=== PATIENT | male | born 1940 | race Caucasian/White ===

== ENCOUNTER 2019-04-14 21:55 | Inpatient (IN) | payer MEDICARE, OTHER ==
[~2019-04-14] VITALS: Ht 167.6 cm; Wt 65.9 kg
[2019-04-14] MEDS ORDERED: SODIUM CHLORIDE 0.9% 1,000 ML IV ONE (23:15)
[2019-04-14] MEDS ORDERED: 0.9% SODIUM CHLORIDE 10 ML SYRINGE IVP PRN (23:15)
[2019-04-14] MEDS ORDERED: GABA-529 PO (23:23)
[2019-04-14] MEDS ORDERED: SEVE0.8P6 PO (23:23)
[2019-04-14] MEDS ORDERED: ALLO300 PO (23:23)
[2019-04-14] MEDS ORDERED: ASPI81 PO (23:23)
[2019-04-14] MEDS ORDERED: PIRF801T PO (23:23)
[2019-04-14] MEDS ORDERED: PRED20 PO (23:23)
[2019-04-14] MEDS ORDERED: PANT40TA25 PO (23:23)
[2019-04-14 23:40] LABS: BASOPHILS % (AUTO) 0.8 % (0.0-2.0); EOSINOPHILS % (AUTO) 0.5 % (1.0-6.0); HEMATOCRIT 34.5 % (41-53); LYMPHOCYTES # (AUTO) 1.2 K/uL (1.0-4.8); LYMPHOCYTES % (AUTO) 6.8 % (22.0-44.0); MEAN CORPUSCULAR HEMOGLOBIN 32.2 pg (26.0-34.0); MEAN CORPUSCULAR VOLUME 101 fL (80-100); MONOCYTES # (AUTO) 0.9 K/uL (0.1-1.0); MONOCYTES % (AUTO) 4.8 % (2.0-9.0); NEUTROPHILS # (AUTO) 15.8 K/uL (1.8-7.7); PLATELET COUNT (AUTO) 241 K/uL (150-450); RED BLOOD CELL COUNT(AUTO) 3.43 MIL/uL (4.50-5.90); RED CELL DISTRIBUTION WIDTH 16.2 % (11.5-14.5)
[2019-04-14 23:41] LABS: NEUTROPHILS % (AUTO) 87.1 % (40.0-70.0)
[2019-04-14] MEDS ORDERED: SODIUM CHLORIDE 0.9% 250 ML IV ONE (23:45)
[2019-04-14 23:49] LABS: CALCIUM, TOTAL 8.6 mg/dL (8.8-10.5); CREATININE 3.75 mg/dL (0.60-1.30); POTASSIUM 3.2 mmol/L (3.5-5.1)
[2019-04-14 23:50] LABS: PROTHROMBIN TIME 10.6 SEC (9.4-11.6)
[2019-04-14 23:56] LABS: LACTIC ACID 1.2 mmol/L (0.4-2.0)
[2019-04-15] VITALS (8 sets, daily range): BP systolic 93–124; BP diastolic 51–68
[2019-04-15 00:03] LABS: ALBUMIN 2.7 g/dL (3.4-5.0); BILIRUBIN,TOTAL 0.5 mg/dL (0.1-1.0)
[2019-04-15] MEDS ORDERED: PIPERACILLIN SODIUM/TAZOBACTAM 2.25 GM in DEXTROSE 5%-WATER 50 ML IV ONE (01:00)
[2019-04-15] MEDS ORDERED: VANCOMYCIN HCL 1.25 GM in DEXTROSE 5%-WATER 250 ML IV ONE (01:00)
[2019-04-15] MEDS ORDERED: ONDANSETRON HCL 4 MG/2 ML VIAL IVP PRN (01:30)
[2019-04-15] MEDS ORDERED: ASPIRIN 325 MG TABLET PO ONE (01:30)
[2019-04-15] MEDS ORDERED: 0.9% SODIUM CHLORIDE 10 ML SYRINGE IVP PRN (01:30)
[2019-04-15] MEDS ORDERED: POTASSIUM CHLORIDE 10 MEQ ER TABLET PO ONE (01:30)
[2019-04-15] MEDS ORDERED: ACETAMINOPHEN 325 MG TABLET PO PRN ×2 (01:30→10:15)
[2019-04-15] MEDS ORDERED: VANCOMYCIN HCL 125 MG/2.5 ML SOLUTION ORAL.SYG PO ONE (01:30)
[2019-04-15] MEDS ORDERED: SODIUM CHLORIDE 0.9% 250 ML IV ONE (10:15)
[2019-04-15] MEDS ORDERED: BISACODYL 10 MG RECTAL RECTAL SUPPOSITORY PR PRN (10:15)
[2019-04-15] MEDS: ASPIRIN 81 MG CHEWABLE TABLET PO SCH (10:54)
[2019-04-15] MEDS ORDERED: VANCOMYCIN HCL 1 GM/D5% WATER 200 ML IV PRN (11:00)
[2019-04-15] MEDS: PIPERACILLIN SODIUM/TAZOBACTAM 2.25 GM in DEXTROSE 5%-WATER 50 ML IV SCH ×2 (12:05→21:37)
[2019-04-15] MEDS: MetroNIDAZOLE 500 MG TABLET PO SCH ×2 (15:12→23:58)
[2019-04-15] MEDS ORDERED: SODIUM CHLORIDE 0.9% 100 ML ONE (18:35)
[2019-04-15] MEDS ORDERED: IOVERSOL 320 MG/ML 100 ML VIAL ONE (18:35)
[2019-04-15 20:52] LABS: C.DIFF GDH ANTIGEN, Stool Positive (Negative)
[2019-04-15 20:56] LABS: C.DIFF TOXINS A&B, Stool Positive (Negative)
[2019-04-15] MEDS: DOCUSATE SODIUM 100 MG CAPSULE PO SCH (21:28)
[2019-04-15] MEDS: HEPARIN SODIUM,PORCINE 5,000 UNITS/ML VIAL SQ SCH (21:29)
[2019-04-16 04:10] VITALS: BP 107/57
[2019-04-16] MEDS: PIPERACILLIN SODIUM/TAZOBACTAM 2.25 GM in DEXTROSE 5%-WATER 50 ML IV SCH (04:38)
[2019-04-16 05:39] LABS: BASOPHILS % (AUTO) 0.4 % (0.0-2.0); EOSINOPHILS % (AUTO) 1.3 % (1.0-6.0); HEMATOCRIT 28.9 % (41-53); HEMOGLOBIN 9.3 g/dL (13.5-17.5); LYMPHOCYTES # (AUTO) 0.9 K/uL (1.0-4.8); LYMPHOCYTES % (AUTO) 7.4 % (22.0-44.0); MEAN CORPUSCULAR HEMOGLOBIN 32.3 pg (26.0-34.0); MEAN CORPUSCULAR HGB CONC 32.4 G/dL (31.0-37.0); MEAN CORPUSCULAR VOLUME 100 fL (80-100); MONOCYTES # (AUTO) 0.6 K/uL (0.1-1.0); MONOCYTES % (AUTO) 4.7 % (2.0-9.0); NEUTROPHILS # (AUTO) 10.5 K/uL (1.8-7.7); PLATELET COUNT (AUTO) 201 K/uL (150-450); RED BLOOD CELL COUNT(AUTO) 2.89 MIL/uL (4.50-5.90); RED CELL DISTRIBUTION WIDTH 16.8 % (11.5-14.5)
[2019-04-16 05:43] LABS: NEUTROPHILS % (AUTO) 86.2 % (40.0-70.0)
[2019-04-16 05:56] LABS: CALCIUM, TOTAL 8.6 mg/dL (8.8-10.5); CREATININE 6.34 mg/dL (0.60-1.30); POTASSIUM 3.4 mmol/L (3.5-5.1)
[2019-04-16] MEDS ORDERED: VANCOMYCIN HCL 500 MG/10 ML SOLUTION ORAL.SYG PO SCH (07:00)
[2019-04-16] MEDS: DOCUSATE SODIUM 100 MG CAPSULE PO SCH ×2 (07:48→20:22)
[2019-04-16] MEDS: FAMOTIDINE 20 MG TABLET PO SCH (07:51)
[2019-04-16] MEDS: HEPARIN SODIUM,PORCINE 5,000 UNITS/ML VIAL SQ SCH ×2 (07:51→20:19)
[2019-04-16] MEDS: ASPIRIN 81 MG CHEWABLE TABLET PO SCH (07:51)
[2019-04-16 08:53] VITALS: BP 91/50
[2019-04-16 11:00] VITALS: BP 90/46
[2019-04-16] MEDS: VANCOMYCIN HCL 125 MG/2.5 ML SOLUTION ORAL.SYG PO SCH ×3 (13:13→23:41)
[2019-04-16 16:08] VITALS: BP 105/53
[2019-04-16 20:08] VITALS: BP 114/58
[2019-04-16 23:42] VITALS: BP 105/71
[2019-04-17 05:26] VITALS: BP 114/63
[2019-04-17] MEDS: VANCOMYCIN HCL 125 MG/2.5 ML SOLUTION ORAL.SYG PO SCH ×2 (05:31→12:00)
[2019-04-17 06:27] LABS: BASOPHILS % (AUTO) 0.9 % (0.0-2.0); EOSINOPHILS % (AUTO) 2.1 % (1.0-6.0); HEMOGLOBIN 9.6 g/dL (13.5-17.5); LYMPHOCYTES # (AUTO) 1.2 K/uL (1.0-4.8); LYMPHOCYTES % (AUTO) 10.5 % (22.0-44.0); MEAN CORPUSCULAR HGB CONC 32.1 G/dL (31.0-37.0); MEAN CORPUSCULAR VOLUME 100 fL (80-100); MONOCYTES # (AUTO) 0.5 K/uL (0.1-1.0); MONOCYTES % (AUTO) 4.5 % (2.0-9.0); NEUTROPHILS # (AUTO) 9.6 K/uL (1.8-7.7); PLATELET COUNT (AUTO) 212 K/uL (150-450); RED BLOOD CELL COUNT(AUTO) 3.01 MIL/uL (4.50-5.90); RED CELL DISTRIBUTION WIDTH 16.7 % (11.5-14.5)
[2019-04-17 06:43] LABS: CALCIUM, TOTAL 8.5 mg/dL (8.8-10.5); CREATININE 8.06 mg/dL (0.60-1.30); POTASSIUM 3.6 mmol/L (3.5-5.1)
[2019-04-17 08:01] VITALS: BP 101/64
[2019-04-17] MEDS: DOCUSATE SODIUM 100 MG CAPSULE PO SCH (09:00)
[2019-04-17] MEDS: HEPARIN SODIUM,PORCINE 5,000 UNITS/ML VIAL SQ SCH (09:42)
[2019-04-17] MEDS: ASPIRIN 81 MG CHEWABLE TABLET PO SCH (09:42)
[2019-04-17] MEDS: FAMOTIDINE 20 MG TABLET PO SCH (09:42)
[2019-04-17 12:00] VITALS: BP 103/62
[2019-04-17] MEDS ORDERED: LACTOBACILLUS ACIDOPHILUS/BULGARICUS GRANULES PACKET PO SCH (12:00)
[2019-04-17 15:27] VITALS: BP 132/55
[2019-04-17] MEDS ORDERED: DSS100 PO (15:44)
[2019-04-17] MEDS ORDERED: HEPA500018 SQ (15:47)
[2019-04-17] MEDS ORDERED: FAMO20 PO (15:47)
[2019-04-17] MEDS ORDERED: ACID1GRA PO (15:48)
[2019-04-17] MEDS ORDERED: METR500 PO (15:49)
[2019-04-17] MEDS ORDERED: VANCOPO PO (16:00)
[2019-04-17] MEDS ORDERED: MetroNIDAZOLE 500 MG TABLET PO SCH (16:00)
[2019-04-17] MEDS ORDERED: ACET-2247 PO (16:03)
[2019-04-17] MEDS ORDERED: BISA10SU11 PR (16:04)
[2019-04-17] MEDS ORDERED: LIDOCAINE/PF 1% 2 ML VIAL IV ONE (16:50)
[2019-04-17] MEDS ORDERED: FIDAXOMICIN 200 MG TABLET PO SCH (21:00)
[2019-04-18] MEDS ORDERED: FIDAXOMICIN 200 MG TABLET PO SCH (09:00)
== END 2019-04-17 18:06 | DRG 871 ==
LOC: EMS 21:58 → 5S 04-15 02:15
PROVIDERS: ADMIT Internal Medicine; ATTEND Internal Medicine
PROC: 5A1D70Z Performance of Urinary Filtration, Intermittent, Less than 6 Hours Per Day (ICD-10-PCS; principal; 2019-04-17)
DX: A41.9 Sepsis, unspecified organism (principal); N18.6 End stage renal disease; R65.21 Severe sepsis with septic shock; E43 Unspecified severe protein-calorie malnutrition; A04.72 Enterocolitis due to Clostridium difficile, not specified as recurrent; I12.0 Hypertensive chronic kidney disease with stage 5 chronic kidney disease or end stage renal disease; J84.10 Pulmonary fibrosis, unspecified; E87.6 Hypokalemia; D64.9 Anemia, unspecified; F17.210 Nicotine dependence, cigarettes, uncomplicated; F03.90 Unspecified dementia, unspecified severity, without behavioral disturbance, psychotic disturbance, mood disturbance, and anxiety; K21.9 Gastro-esophageal reflux disease without esophagitis; E78.5 Hyperlipidemia, unspecified; Z88.8 Allergy status to other drugs, medicaments and biological substances; Z99.2 Dependence on renal dialysis; Z68.23 Body mass index [BMI] 23.0-23.9, adult
CPT/HCPCS: 71260; 72193; 74019; 74160; 83605; 87040; 87081; 87324; 87340; 87449; 89055; 93005; 99291; J1644; J2543; J3370; J3490; J7030; J7050; J7060